=== PATIENT | male | born 1965 | race Hispanic/Latino ===

== ENCOUNTER 2019-10-18 23:28 | Emergency (ER) | payer OTHER ==
[2019-10-18] MEDS ORDERED: CEFTRIAXONE SODIUM 1 GM ONE (23:47)
[2019-10-18] MEDS ORDERED: LIDOCAINE HCL-MPF 1% 2ML VIAL ONE (23:47)
[2019-10-18] MEDS ORDERED: DEXAMETHASONE SOD PHOSPHATE 10MG/ML 1ML VIAL ONE (23:47)
== END 2019-10-19 00:25 | disposition home or self-care (01) ==
LOC: EDH 23:28
DX: J02.9 Acute pharyngitis, unspecified (principal); I10 Essential (primary) hypertension; Z72.0 Tobacco use
CPT/HCPCS: 96372 ×2; 99284; J0696; J1100; J3490

== ENCOUNTER 2023-04-04 20:21 | Emergency (ER) | payer OTHER ==
[~2023-04-04] VITALS: Ht 160 cm; Wt 87.1 kg
[2023-04-04 21:20] LABS: BASOPHILS % (AUTO) 0.4 % (0.0-5.0); EOSINOPHILS % (AUTO) 0.6 % (0.0-8.0); HEMATOCRIT 42.9 % (42-54); MEAN CORPUSCULAR HEMOGLOBIN 30.2 pg (27.0-33.0); MEAN CORPUSCULAR HGB CONC 33.8 g/dL (32.0-36.0); MEAN CORPUSCULAR VOLUME 89.4 fL (79-99); MONOCYTES % (AUTO) 6.1 % (3.0-13.0); NEUTROPHILS % (AUTO) 69.5 % (40.0-77.0); PLATELET COUNT (AUTO) 256 K/uL (130-400); RED CELL DISTRIBUTION WIDTH 12.4 % (11.0-15.5); WHITE BLOOD COUNT (AUTO) 9.3 K/uL (4.8-10.8)
[2023-04-04 21:21] LABS: APPEARANCE,URINE CLEAR (CLEAR); BILIRUBIN,URINE NEGATIVE (NEGATIVE); COLOR,URINE LIGHT-YELLOW (YELLOW); GLUCOSE, URINE (UA) NEGATIVE (NEGATIVE); KETONES,URINE NEGATIVE (NEGATIVE); LEUKOCYTE ESTERASE ,URINE NEGATIVE Leu/uL (NEGATIVE); NITRATE,URINE NEGATIVE (NEGATIVE); OCCULT BLOOD,URINE MODERATE (NEGATIVE); PH,URINE 5.5 (5.0-8.0); PROTEIN,URINE NEGATIVE (NEGATIVE); UROBILINOGEN,URINE 0.2 mg/dL (0.2-1.0)
[2023-04-04 21:26] LABS: BACTERIA,URINE RARE /HPF (None Seen); CALCIUM OXALATE CRYSTALS,UR RARE /LPF (None Seen); MUCUS,URINE RARE LPF (None Seen); SQUAMOUS EPITHELIAL CELL,UR RARE /HPF (0-2)
[2023-04-04] MEDS ORDERED: LACTATED RINGERS 1000ML 1,000 ML IV ONE (21:30)
[2023-04-04] MEDS ORDERED: ONDANSETRON 4MG INJ IVP ONE (21:30)
[2023-04-04] MEDS ORDERED: MORPHINE 4 MG SYG IVP ONE (21:30)
[2023-04-04 21:37] LABS: CREATININE 1.6 mg/dL (0.5-1.5); TOTAL PROTEIN, SERUM 7.6 g/dL (6.0-8.3)
[2023-04-04 21:42] LABS: POTASSIUM 2.9 mmol/L (3.5-5.1)
[2023-04-04] MEDS ORDERED: POTASSIUM CHLORIDE 20MEQ/10ML 10 MEQ in 0.9%NACL 50ML 50 ML IV SCH (22:30)
[2023-04-04] MEDS ORDERED: POTASSIUM BICARB/CIT AC 25 MEQ TABLET.EFF PO ONE (22:30)
[2023-04-05 00:28] VITALS: BP 139/86
== END 2023-04-05 00:31 | disposition home or self-care (01) ==
LOC: EDH 20:28
DX: R10.11 Right upper quadrant pain (principal); N20.0 Calculus of kidney; I10 Essential (primary) hypertension
CPT/HCPCS: 99285; 74177; 96374; 96361; 76705; 96375; 82550; 84484; 80053; 83690; 85025; 81001; 36415; 93005; J2405; J2270; J3480

== ENCOUNTER 2024-04-23 23:20 | Emergency (ER) | payer BC, OTHER ==
[~2024-04-23] VITALS: Ht 160 cm; Wt 74.4 kg
[~2024-04-23 23:20] MED LIST: LISI1TAB51 PO
[2024-04-24] MEDS ORDERED: SUCRALFATE 1 GM/10 ML PO SCH (01:00)
[2024-04-24] MEDS: LIDOCAINE HCL 2% VISCOUS 15 ML UDCUP PO ONE (01:42)
[2024-04-24] MEDS: DICYCLOMINE HCL 10 MG/5 ML ML PO ONE (01:42)
[2024-04-24] MEDS: MAG/ALUM/SIMETH 30 ML UDCUP PO ONE (01:42)
[2024-04-24 02:47] VITALS: BP 158/87; PULSE 60; RESP 18; O2SAT 97
== END 2024-04-24 02:56 | disposition home or self-care (01) ==
LOC: EDH 23:20
DX: K21.9 Gastro-esophageal reflux disease without esophagitis (principal); K44.9 Diaphragmatic hernia without obstruction or gangrene; J02.9 Acute pharyngitis, unspecified; I10 Essential (primary) hypertension; Z79.899 Other long term (current) drug therapy
CPT/HCPCS: 87880; 93005

== ENCOUNTER → 2024-11-29 | Outpatient (CLI) | payer OTHER ==
--- NOTE | 2024-11-29 14:12 | HMCIMG ---
CT HEART SAVER PROMOTIONAL HISTORY: Calcium scoring COMPARISON: None TECHNIQUE: Computed tomography of the heart was performed with ECG gating and suspended respiration. Postprocessing was performed on a computer workstation to obtain diastolic phase images, determine calcium score and provide a quantitative assessment of extent of disease. This CT included only the heart. HeartSaver score is 428.0. Please see cardiac calcium score report. The available CT chest images show no acute finding. CT was performed with one or more following dose reduction techniques: automated exposure control, adjustment of the mA and kv according to patient's size, or use of a iterative reconstruction technique.
== END | disposition home or self-care (01) ==
LOC: RAH 13:03
PROVIDERS: ATTEND Internal Medicine Cardiovascular Disease
DX: Z13.6 Encounter for screening for cardiovascular disorders (principal); R93.1 Abnormal findings on diagnostic imaging of heart and coronary circulation
CPT/HCPCS: 75571